=== PATIENT | male | born 1935 | race Hispanic/Latino ===

== ENCOUNTER 2017-12-21 15:42 | Inpatient (IN) | payer OTHER ==
[~2017-12-21] VITALS: Ht 172.7 cm; Wt 49.4 kg
[~2017-12-21 15:42] MED LIST: CARB1TAB23 GT; FINA5TAB2 GT; LEVE500T19 GT; LEVO500T2 PO; PRAM0.5T12 PO
[2017-12-21] MEDS ORDERED: SODIUM CHLORIDE 0.9% 1000ML 1,000 ML IV ONE ×2 (16:12→21:00)
[2017-12-21] MEDS ORDERED: ZOSYN 3.375GM+NS 50ML 50 ML IV ONE (16:12)
[2017-12-21] MEDS ORDERED: ACETAMINOPHEN 325 MG TAB ONE (16:25)
[2017-12-21 16:26] LABS: BASOPHILS % (AUTO) 0.1 % (0.0-5.0); HEMATOCRIT 36.6 % (42-54); LYMPHOCYTES % (AUTO) 4.4 % (21.0-51.0); MEAN CORPUSCULAR HEMOGLOBIN 30.8 pg (27.0-33.0); MEAN CORPUSCULAR HGB CONC 34.2 g/dL (32.0-36.0); MEAN CORPUSCULAR VOLUME 89.9 fL (79-99); MONOCYTES % (AUTO) 4.4 % (3.0-13.0); NEUTROPHILS % (AUTO) 91.1 % (40.0-77.0); PLATELET COUNT (AUTO) 130 K/uL (130-400); RED BLOOD CELL COUNT(AUTO) 4.07 MIL/uL (4.50-6.20); RED CELL DISTRIBUTION WIDTH 15.5 % (11.0-15.5); WHITE BLOOD COUNT (AUTO) 14.7 K/uL (4.8-10.8)
[2017-12-21 16:28] LABS: CREATININE 0.8 mg/dL (0.5-1.5); POTASSIUM 4.1 mmol/L (3.5-5.1)
[2017-12-21 16:32] LABS: INR 1.01 (0.85-1.15); PARTIAL THROMBOPLASTIN TIME 28.4 SEC (26.3-35.5); PROTHROMBIN TIME 10.6 SEC (9.6-11.6)
[2017-12-21 16:43] LABS: ALBUMIN 4.1 g/dL (3.5-5.0); BILIRUBIN,TOTAL 1.1 mg/dL (0.2-1.0); CREATINE KINASE MB 1.4 ng/mL (0.5-3.6); TOTAL PROTEIN, SERUM 7.7 g/dL (6.0-8.3); TROPONIN I 0.07 ng/mL (0.00-0.06)
[2017-12-21 17:45] LABS: APPEARANCE,URINE Clear (CLEAR); BILIRUBIN,URINE Negative (NEGATIVE); COLOR,URINE Yellow (YELLOW); GLUCOSE, URINE (UA) Negative (NEGATIVE); KETONES,URINE Negative (NEGATIVE); LEUKOCYTE ESTERASE ,URINE Small (NEGATIVE); NITRATE,URINE Negative (NEGATIVE); OCCULT BLOOD,URINE Negative (NEGATIVE); PROTEIN,URINE Negative (NEGATIVE)
[2017-12-21 17:50] LABS: RBC,URINE 0-1 /HPF (0-1)
[2017-12-21 17:51] LABS: BACTERIA,URINE Rare /HPF (None Seen); SQUAMOUS EPITHELIAL CELL,UR Rare /HPF (0-2)
[2017-12-21] MEDS ORDERED: VANCOMYCIN 1GM+NS 250ML 250 ML IV ONE (18:55)
[2017-12-21 20:29] VITALS: BP 126/56
[2017-12-21] MEDS ORDERED: LEVOFLOXACIN 500 MG/D5W 100 ML 100 ML IV SCH (21:00)
[2017-12-21] MEDS ORDERED: ACETAMINOPHEN 325 MG TAB PO PRN (21:15)
[2017-12-21] MEDS: LEVETIRACETAM 500 MG TABLET PO SCH (21:19)
[2017-12-21] MEDS: PRAMIPEXOLE DI-HCL 0.25 MG TABLET PO SCH (21:19)
[2017-12-21] MEDS: SODIUM CHLORIDE 0.9% 1000ML 1,000 ML IV SCH (21:20)
[2017-12-22] VITALS: BP 120/57
[2017-12-22] MEDS: ZOSYN 3.375GM+NS 50ML 50 ML IV SCH ×3 (01:58→16:29)
[2017-12-22 04:33] VITALS: BP 128/54
[2017-12-22 04:49] LABS: HEMATOCRIT 34.6 % (42-54); MEAN CORPUSCULAR HGB CONC 35.4 g/dL (32.0-36.0); MEAN CORPUSCULAR VOLUME 90.4 fL (79-99); PLATELET COUNT (AUTO) 121 K/uL (130-400); RED BLOOD CELL COUNT(AUTO) 3.82 MIL/uL (4.50-6.20); RED CELL DISTRIBUTION WIDTH 15.8 % (11.0-15.5); WHITE BLOOD COUNT (AUTO) 14.6 K/uL (4.8-10.8)
[2017-12-22 05:03] LABS: ALBUMIN 3.1 g/dL (3.5-5.0); BILIRUBIN,TOTAL 1.2 mg/dL (0.2-1.0); CREATININE 0.8 mg/dL (0.5-1.5); POTASSIUM 3.7 mmol/L (3.5-5.1); TOTAL PROTEIN, SERUM 6.5 g/dL (6.0-8.3)
[2017-12-22] MEDS: SODIUM CHLORIDE 0.9% 1000ML 1,000 ML IV SCH ×2 (06:51→16:34)
[2017-12-22 08:00] VITALS: BP 98/52
[2017-12-22] MEDS: LEVETIRACETAM 500 MG TABLET PO SCH ×2 (09:05→21:39)
[2017-12-22] MEDS: FAMOTIDINE 20MG TAB 20 MG TAB PO SCH ×2 (09:05→21:39)
[2017-12-22] MEDS: FINASTERIDE 5 MG TABLET PO SCH (09:05)
[2017-12-22] MEDS: PRAMIPEXOLE DI-HCL 0.25 MG TABLET PO SCH ×3 (09:05→21:45)
[2017-12-22] MEDS: ENOXAPARIN SODIUM 30 MG/0.3 ML SQ SCH (09:07)
[2017-12-22 12:00] VITALS: BP 84/44
[2017-12-22] MEDS ORDERED: VANCOMYCIN 1GM+NS 250ML 250 ML IV SCH (14:00)
[2017-12-22 16:00] VITALS: BP 115/57
[2017-12-22 20:36] VITALS: BP 96/51
[2017-12-22] MEDS ORDERED: LEVOFLOXACIN 500 MG/D5W 100 ML 100 ML IV SCH (23:15)
[2017-12-23] VITALS (8 sets, daily range): BP systolic 95–156; BP diastolic 47–77
[2017-12-23] MEDS: ZOSYN 3.375GM+NS 50ML 50 ML IV SCH ×3 (01:54→16:10)
[2017-12-23] MEDS: SODIUM CHLORIDE 0.9% 1000ML 1,000 ML IV SCH ×3 (03:57→23:44)
[2017-12-23 04:09] LABS: HEMATOCRIT 29.1 % (42-54); MEAN CORPUSCULAR HEMOGLOBIN 32.5 pg (27.0-33.0); MEAN CORPUSCULAR HGB CONC 36.1 g/dL (32.0-36.0); MEAN CORPUSCULAR VOLUME 90.2 fL (79-99); PLATELET COUNT (AUTO) 122 K/uL (130-400); RED BLOOD CELL COUNT(AUTO) 3.23 MIL/uL (4.50-6.20); RED CELL DISTRIBUTION WIDTH 16.1 % (11.0-15.5)
[2017-12-23 04:17] LABS: BASOPHILS % (MANUAL) 2 % (0-2); LYMPHOCYTES % (MANUAL) 13 % (22-44); MAN.DIFF COMMENT-IMPRESSION MANUAL DIFFERENTIAL; MONOCYTES % (MANUAL) 3 % (2-9); PLATELET MORPHOLOGY COMMENT SLIGHTLY DECREASED; SEGMENTED NEUTROPHILS % 82 % (40-70)
[2017-12-23] MEDS: FINASTERIDE 5 MG TABLET PO SCH (08:03)
[2017-12-23] MEDS: PRAMIPEXOLE DI-HCL 0.25 MG TABLET PO SCH ×3 (08:03→21:00)
[2017-12-23] MEDS: LEVETIRACETAM 500 MG TABLET PO SCH ×2 (08:03→21:00)
[2017-12-23] MEDS: FAMOTIDINE 20MG TAB 20 MG TAB PO SCH ×2 (08:03→21:00)
[2017-12-23] MEDS: ENOXAPARIN SODIUM 30 MG/0.3 ML SQ SCH (08:06)
[2017-12-23] MEDS: MECLIZINE HCL 25 MG TABLET PO PRN ×2 (10:00→16:10)
[2017-12-23] MEDS ORDERED: ONDANSETRON HCL 4 MG/2 ML VIAL IVP PRN (12:00)
[2017-12-23] MEDS: LACTULOSE 20 GM/30 ML UDCUP PO PRN (16:10)
[2017-12-23] MEDS ORDERED: HALOPERIDOL 5 MG TABLET PO PRN (17:15)
[2017-12-23] MEDS ORDERED: HALOPERIDOL LACTATE 5 MG/ML VIAL IM PRN (17:15)
[2017-12-24] MEDS: ZOSYN 3.375GM+NS 50ML 50 ML IV SCH ×4 (01:17→23:29)
[2017-12-24 03:58] VITALS: BP 127/62
[2017-12-24 04:53] LABS: HEMATOCRIT 34.9 % (42-54); MEAN CORPUSCULAR HGB CONC 34.7 g/dL (32.0-36.0); MEAN CORPUSCULAR VOLUME 89.3 fL (79-99); PLATELET COUNT (AUTO) 135 K/uL (130-400); RED BLOOD CELL COUNT(AUTO) 3.91 MIL/uL (4.50-6.20); RED CELL DISTRIBUTION WIDTH 15.5 % (11.0-15.5)
[2017-12-24 05:01] LABS: EOSINOPHILS % (MANUAL) 1 % (1-6); LYMPHOCYTES % (MANUAL) 6 % (22-44); MONOCYTES % (MANUAL) 5 % (2-9); SEGMENTED NEUTROPHILS % 88 % (40-70)
[2017-12-24 05:02] LABS: MAN.DIFF COMMENT-IMPRESSION MANUAL DIFFERENTIAL; PLATELET MORPHOLOGY COMMENT ADEQUATE
[2017-12-24 07:00] VITALS: BP 136/65
[2017-12-24] MEDS: PRAMIPEXOLE DI-HCL 0.25 MG TABLET PO SCH ×3 (09:00→21:00)
[2017-12-24] MEDS: FAMOTIDINE 20MG TAB 20 MG TAB PO SCH ×2 (09:00→21:00)
[2017-12-24] MEDS: FINASTERIDE 5 MG TABLET PO SCH (09:00)
[2017-12-24] MEDS: LEVETIRACETAM 500 MG TABLET PO SCH ×2 (09:00→21:00)
[2017-12-24] MEDS: ENOXAPARIN SODIUM 30 MG/0.3 ML SQ SCH (10:53)
[2017-12-24 11:00] VITALS: BP 132/61
[2017-12-24] MEDS: SODIUM CHLORIDE 0.9% 1000ML 1,000 ML IV SCH (13:26)
[2017-12-24 16:00] VITALS: BP 122/49
[2017-12-24 19:30] VITALS: BP 143/72
[2017-12-24 23:51] VITALS: BP 155/61
[2017-12-25] VITALS (20 sets, daily range): BP systolic 109–154; BP diastolic 51–77
[2017-12-25] MEDS: SODIUM CHLORIDE 0.9% 1000ML 1,000 ML IV SCH (06:59)
[2017-12-25] MEDS: FAMOTIDINE 20MG TAB 20 MG TAB PO SCH ×2 (09:00→22:28)
[2017-12-25] MEDS: PRAMIPEXOLE DI-HCL 0.25 MG TABLET PO SCH ×3 (09:00→22:28)
[2017-12-25] MEDS: LEVETIRACETAM 500 MG TABLET PO SCH ×2 (09:00→22:28)
[2017-12-25] MEDS: FINASTERIDE 5 MG TABLET PO SCH (09:00)
[2017-12-25] MEDS: ZOSYN 3.375GM+NS 50ML 50 ML IV SCH ×3 (10:03→23:34)
[2017-12-25] MEDS ORDERED: DEXTROSE 5 %-0.45 % NACL 1,000 ML IV SCH (11:30)
[2017-12-25] MEDS ORDERED: PROPOFOL 10 MG/ML 20ML VIAL IV ONE ×2 (14:34)
[2017-12-25] MEDS ORDERED: LIDOCAINE HCL 2% 20ML ONE (14:35)
[2017-12-25] MEDS ORDERED: PHENYLEPHRINE HCL 10 MG/ML 1ML VIAL IV ONE (14:42)
[2017-12-26 04:00] VITALS: BP 135/68
[2017-12-26 05:17] LABS: HEMATOCRIT 36.4 % (42-54); MEAN CORPUSCULAR HEMOGLOBIN 31.2 pg (27.0-33.0); MEAN CORPUSCULAR HGB CONC 34.9 g/dL (32.0-36.0); MEAN CORPUSCULAR VOLUME 89.5 fL (79-99); PLATELET COUNT (AUTO) 170 K/uL (130-400); RED BLOOD CELL COUNT(AUTO) 4.07 MIL/uL (4.50-6.20); RED CELL DISTRIBUTION WIDTH 15.1 % (11.0-15.5); WHITE BLOOD COUNT (AUTO) 10.8 K/uL (4.8-10.8)
[2017-12-26 05:27] LABS: CREATININE 0.6 mg/dL (0.5-1.5); POTASSIUM 3.5 mmol/L (3.5-5.1)
[2017-12-26 05:44] LABS: BAND NEUTROPHILS % (MANUAL) 1 % (0-2); EOSINOPHILS % (MANUAL) 2 % (1-6); LYMPHOCYTES % (MANUAL) 17 % (22-44); MAN.DIFF COMMENT-IMPRESSION MANUAL DIFFERENTIAL; MONOCYTES % (MANUAL) 7 % (2-9); PLATELET MORPHOLOGY COMMENT ADEQUATE; SEGMENTED NEUTROPHILS % 73 % (40-70)
[2017-12-26 08:13] VITALS: BP 135/68
[2017-12-26] MEDS: PANTOPRAZOLE SODIUM 40 MG TABLET.DR PO SCH (09:00)
[2017-12-26] MEDS: FINASTERIDE 5 MG TABLET PO SCH (09:00)
[2017-12-26] MEDS: LEVETIRACETAM 100 MG/ML 5 ML UDCUP PO SCH ×2 (09:58→22:15)
[2017-12-26] MEDS: PRAMIPEXOLE DI-HCL 0.25 MG TABLET PO SCH ×3 (09:59→22:15)
[2017-12-26] MEDS: FAMOTIDINE 20MG TAB 20 MG TAB PO SCH ×2 (09:59→22:15)
[2017-12-26] MEDS: ZOSYN 3.375GM+NS 50ML 50 ML IV SCH ×3 (10:03→23:44)
[2017-12-26 12:15] VITALS: BP 136/62
[2017-12-26 16:40] VITALS: BP 150/72
[2017-12-26 19:24] VITALS: BP 157/76
[2017-12-26 23:28] VITALS: BP 112/60
[2017-12-27 03:41] VITALS: BP 141/67
[2017-12-27 08:00] VITALS: BP 133/74
[2017-12-27] MEDS: PANTOPRAZOLE SODIUM 40 MG TABLET.DR PO SCH (08:07)
[2017-12-27] MEDS: FINASTERIDE 5 MG TABLET PO SCH (08:07)
[2017-12-27] MEDS: LEVETIRACETAM 100 MG/ML 5 ML UDCUP PO SCH ×2 (10:00→20:05)
[2017-12-27] MEDS: ZOSYN 3.375GM+NS 50ML 50 ML IV SCH ×3 (10:01→23:58)
[2017-12-27] MEDS: PRAMIPEXOLE DI-HCL 0.25 MG TABLET PO SCH ×3 (10:01→20:13)
[2017-12-27] MEDS: FAMOTIDINE 20MG TAB 20 MG TAB PO SCH ×2 (10:01→20:05)
[2017-12-27 12:00] VITALS: BP 114/54
[2017-12-27] MEDS: LACTULOSE 20 GM/30 ML UDCUP PO PRN (15:24)
[2017-12-27 16:00] VITALS: BP 117/53
[2017-12-27] MEDS ORDERED: FUROSEMIDE 10 MG/ML 2ML VIAL IV SCH (19:00)
[2017-12-27 20:33] VITALS: BP 116/58
[2017-12-27 23:39] VITALS: BP 103/51
[2017-12-28 04:35] VITALS: BP 85/52
[2017-12-28] MEDS ORDERED: SODIUM CHLORIDE 0.9% 500ML 500 ML IV SCH ×2 (04:45→05:45)
[2017-12-28 06:12] VITALS: BP 107/43
[2017-12-28 06:59] LABS: ALBUMIN 2.4 g/dL (3.5-5.0); BILIRUBIN,TOTAL 0.4 mg/dL (0.2-1.0); CREATININE 0.6 mg/dL (0.5-1.5); POTASSIUM 3.1 mmol/L (3.5-5.1)
[2017-12-28 08:00] VITALS: BP 90/36
[2017-12-28] MEDS: ZOSYN 3.375GM+NS 50ML 50 ML IV SCH ×2 (10:07→16:29)
[2017-12-28] MEDS: FINASTERIDE 5 MG TABLET PO SCH (10:08)
[2017-12-28] MEDS: PANTOPRAZOLE SODIUM 40 MG TABLET.DR PO SCH (10:08)
[2017-12-28] MEDS: PRAMIPEXOLE DI-HCL 0.25 MG TABLET PO SCH ×3 (10:08→20:09)
[2017-12-28] MEDS: LEVETIRACETAM 100 MG/ML 5 ML UDCUP PO SCH ×2 (10:08→20:09)
[2017-12-28] MEDS: FAMOTIDINE 20MG TAB 20 MG TAB PO SCH ×2 (10:08→20:09)
[2017-12-28 11:00] VITALS: BP 96/62
[2017-12-28 15:42] VITALS: BP 97/44
[2017-12-28] MEDS ORDERED: POTASSIUM CHLORIDE 10% ELIXIR 20 MEQ/15 ML UDCUP PO PRN (16:00)
[2017-12-28] MEDS ORDERED: POTASSIUM CHLORIDE 20 MEQ ERTAB PO PRN (16:00)
[2017-12-28] MEDS ORDERED: LIDOCAINE HCL-MPF 1% 2ML VIAL IVP PRN (16:00)
[2017-12-28] MEDS ORDERED: POTASSIUM CHLORIDE 20MEQ/100ML 100 ML IV PRN (16:00)
[2017-12-28 20:22] VITALS: BP 146/60
[2017-12-29 00:22] VITALS: BP 108/49
[2017-12-29] MEDS: ZOSYN 3.375GM+NS 50ML 50 ML IV SCH ×3 (00:39→16:00)
[2017-12-29 03:48] VITALS: BP 127/53
[2017-12-29 07:00] VITALS: BP 123/43
[2017-12-29] MEDS: PRAMIPEXOLE DI-HCL 0.25 MG TABLET PO SCH ×2 (08:39→14:00)
[2017-12-29] MEDS: FAMOTIDINE 20MG TAB 20 MG TAB PO SCH (08:39)
[2017-12-29] MEDS: FINASTERIDE 5 MG TABLET PO SCH (08:39)
[2017-12-29] MEDS: PANTOPRAZOLE SODIUM 40 MG TABLET.DR PO SCH (08:39)
[2017-12-29] MEDS: LEVETIRACETAM 100 MG/ML 5 ML UDCUP PO SCH (08:40)
[2017-12-29 11:15] VITALS: BP 138/67
[2017-12-29 15:35] VITALS: BP 116/53
[2017-12-30] MEDS ORDERED: LEVOFLOXACIN 750 MG/D5W 150 ML 150 ML ONE (23:30)
== END 2017-12-29 19:40 | DRG 177 ==
LOC: EDH 15:42 → OBSVTOIN 18:50 → EDHIP 18:50 → 3AH 19:39
PROVIDERS: ADMIT Family Medicine; ATTEND Family Medicine
PROC: 0DJ08ZZ Inspection of Upper Intestinal Tract, Via Natural or Artificial Opening Endoscopic (ICD-10-PCS; principal; 2017-12-25)
DX: J69.0 Pneumonitis due to inhalation of food and vomit (principal); E43 Unspecified severe protein-calorie malnutrition; G93.41 Metabolic encephalopathy; D68.9 Coagulation defect, unspecified; D69.6 Thrombocytopenia, unspecified; G20 Parkinson's disease; Z93.1 Gastrostomy status; K26.9 Duodenal ulcer, unspecified as acute or chronic, without hemorrhage or perforation; Z68.1 Body mass index [BMI] 19.9 or less, adult; R13.12 Dysphagia, oropharyngeal phase; D64.9 Anemia, unspecified; D73.1 Hypersplenism; G25.81 Restless legs syndrome; G40.909 Epilepsy, unspecified, not intractable, without status epilepticus; D72.829 Elevated white blood cell count, unspecified; K59.00 Constipation, unspecified; Z74.01 Bed confinement status; Z83.3 Family history of diabetes mellitus; Z82.49 Family history of ischemic heart disease and other diseases of the circulatory system; K29.00 Acute gastritis without bleeding; K57.10 Diverticulosis of small intestine without perforation or abscess without bleeding; K21.0 Gastro-esophageal reflux disease with esophagitis; K44.9 Diaphragmatic hernia without obstruction or gangrene
CPT/HCPCS: 36415; 71045; 74230; 80048; 80053; 81001; 82550; 82553; 82948; 83605; 83874; 84132; 84484; 85025; 85027; 85610; 85730; 86677; 87040; 87088; 87633; 87641; 87804; 92610; 92611; 93005; 97039; A4344; J1630; J1650; J1940; J1956; J2370; J2405; J2543; J2704; J3370; J3490; J7030; J7042

== ENCOUNTER 2017-12-30 17:55 | Inpatient (IN) | payer OTHER ==
[~2017-12-30] VITALS: Ht 172.7 cm; Wt 44.5 kg
[~2017-12-30 17:55] MED LIST changes: -LEVO500T2 PO
[2017-12-30 18:17] LABS: ABG BASE EXCESS 8.5 mmol/L (-2.0-3.0); ABG HCO3 33.8 mmol/L (21.0-28.0); ABG PCO2 49 mmHg (35-48)
[2017-12-30 18:32] LABS: BASOPHILS % (AUTO) 0.4 % (0.0-5.0); EOSINOPHILS % (AUTO) 0.4 % (0.0-8.0); HEMATOCRIT 32.4 % (42-54); LYMPHOCYTES % (AUTO) 4.7 % (21.0-51.0); MEAN CORPUSCULAR HEMOGLOBIN 31.6 pg (27.0-33.0); MEAN CORPUSCULAR HGB CONC 34.7 g/dL (32.0-36.0); MONOCYTES % (AUTO) 5.4 % (3.0-13.0); NEUTROPHILS % (AUTO) 89.1 % (40.0-77.0); PLATELET COUNT (AUTO) 287 K/uL (130-400); RED BLOOD CELL COUNT(AUTO) 3.56 MIL/uL (4.50-6.20); RED CELL DISTRIBUTION WIDTH 15.1 % (11.0-15.5); WHITE BLOOD COUNT (AUTO) 16.7 K/uL (4.8-10.8)
[2017-12-30 18:46] LABS: INR 1.05 (0.85-1.15); PARTIAL THROMBOPLASTIN TIME 29.5 SEC (26.3-35.5)
[2017-12-30 18:53] LABS: ALBUMIN 2.6 g/dL (3.5-5.0); CREATININE 0.8 mg/dL (0.5-1.5); POTASSIUM 4.3 mmol/L (3.5-5.1)
[2017-12-30 19:11] LABS: BILIRUBIN,TOTAL 0.4 mg/dL (0.2-1.0); TOTAL PROTEIN, SERUM 6.8 g/dL (6.0-8.3)
[2017-12-30] MEDS: SODIUM CHLORIDE 0.9% 1000ML 1,000 ML IV SCH (20:30)
[2017-12-30] MEDS ORDERED: COMPOUND IV REFRIGERATED 1 EACH IVSOLN MISC PRN (21:00)
[2017-12-30] MEDS ORDERED: VANCOMYCIN PROTOCOL PER PHARMACY IV SCH (21:00)
[2017-12-30] MEDS: LEVOFLOXACIN 750 MG/D5W 150 ML 150 ML IV SCH (21:00)
[2017-12-30] MEDS: IPRATROPIUM/ALBUTEROL SULFATE 3 ML SOLUTION IH SCH (22:14)
[2017-12-30] MEDS ORDERED: VANCOMYCIN 1.25 GM in SODIUM CHLORIDE 0.9% 250 ML IV ONE (23:00)
[2017-12-31] VITALS (7 sets, daily range): BP systolic 100–157; BP diastolic 44–74
[2017-12-31] MEDS: IPRATROPIUM/ALBUTEROL SULFATE 3 ML SOLUTION IH SCH ×6 (01:28→22:35)
[2017-12-31] MEDS ORDERED: FAMO-136 GT (04:21)
[2017-12-31] MEDS ORDERED: PRAM0.5T12 GT (04:21)
[2017-12-31] MEDS ORDERED: PROTEIN FORTIFIER GT (04:21)
[2017-12-31] MEDS ORDERED: ACET325T51 GT (04:21)
[2017-12-31] MEDS ORDERED: LACT10SO9 PO (04:21)
[2017-12-31 04:58] LABS: HEMATOCRIT 32.8 % (42-54); MEAN CORPUSCULAR HEMOGLOBIN 31.2 pg (27.0-33.0); MEAN CORPUSCULAR HGB CONC 34.5 g/dL (32.0-36.0); MEAN CORPUSCULAR VOLUME 90.4 fL (79-99); PLATELET COUNT (AUTO) 289 K/uL (130-400); RED BLOOD CELL COUNT(AUTO) 3.63 MIL/uL (4.50-6.20); RED CELL DISTRIBUTION WIDTH 15.3 % (11.0-15.5); WHITE BLOOD COUNT (AUTO) 16.4 K/uL (4.8-10.8)
[2017-12-31 05:07] LABS: CREATININE 0.7 mg/dL (0.5-1.5)
[2017-12-31] MEDS: ZOSYN 3.375GM+NS 50ML 50 ML IV SCH ×3 (05:15→21:04)
[2017-12-31 07:07] LABS: APPEARANCE,URINE CLOUDY (CLEAR); BILIRUBIN,URINE NEGATIVE (NEGATIVE); COLOR,URINE YELLOW (YELLOW); GLUCOSE, URINE (UA) NEGATIVE (NEGATIVE); KETONES,URINE NEGATIVE (NEGATIVE); LEUKOCYTE ESTERASE ,URINE NEGATIVE (NEGATIVE); NITRATE,URINE NEGATIVE (NEGATIVE); OCCULT BLOOD,URINE NEGATIVE (NEGATIVE); PH,URINE 8.5 (5.0-8.0); PROTEIN,URINE NEGATIVE (NEGATIVE)
[2017-12-31 07:30] LABS: AMORPHOUS SEDIMENT,UR Moderate /LPF (None Seen); BACTERIA,URINE Rare /HPF (None Seen); RBC,URINE 0-1 /HPF (0-1); SQUAMOUS EPITHELIAL CELL,UR Rare /HPF (0-2); WBC,URINE 0-1 /HPF (0-1)
[2017-12-31] MEDS: ENOXAPARIN SODIUM 30 MG/0.3 ML SQ SCH ×2 (09:00→21:00)
[2017-12-31] MEDS: FAMOTIDINE/PF 20 MG/2 ML VIAL IV SCH (10:02)
[2017-12-31] MEDS: SODIUM CHLORIDE 0.9% 1000ML 1,000 ML IV SCH (10:07)
[2017-12-31] MEDS ORDERED: VANCOMYCIN 1GM+NS 250ML 250 ML IV SCH (11:00)
[2017-12-31] MEDS ORDERED: LACTULOSE 20 GM/30 ML UDCUP PO PRN (15:30)
[2017-12-31] MEDS ORDERED: ACETAMINOPHEN 325 MG TAB GT PRN (15:30)
[2017-12-31] MEDS: CARBIDOPA PO SCH ×2 (17:45→21:09)
[2017-12-31] MEDS: LEVODOPA PO SCH ×2 (17:45→21:09)
[2017-12-31] MEDS: PRAMIPEXOLE DI-HCL 0.25 MG TABLET PO SCH (21:00)
[2017-12-31] MEDS: PROTEIN FORTIFIER PO SCH (21:00)
[2017-12-31] MEDS: LEVETIRACETAM 500 MG TABLET PO SCH (21:06)
[2017-12-31] MEDS: PRAMIPEXOLE DI-HCL 0.25 MG TABLET GT SCH (21:06)
[2017-12-31] MEDS: LEVOFLOXACIN 750 MG/D5W 150 ML 150 ML IV SCH (21:17)
[2018-01-01] MEDS: IPRATROPIUM/ALBUTEROL SULFATE 3 ML SOLUTION IH SCH ×6 (02:00→22:50)
[2018-01-01 03:00] VITALS: BP 146/66
[2018-01-01] MEDS: ZOSYN 3.375GM+NS 50ML 50 ML IV SCH ×3 (04:40→19:40)
[2018-01-01] MEDS: SODIUM CHLORIDE 0.9% 1000ML 1,000 ML IV SCH ×3 (04:40→23:06)
[2018-01-01 06:09] LABS: HEMATOCRIT 31.4 % (42-54); MEAN CORPUSCULAR HEMOGLOBIN 31.4 pg (27.0-33.0); MEAN CORPUSCULAR HGB CONC 34.7 g/dL (32.0-36.0); MEAN CORPUSCULAR VOLUME 90.4 fL (79-99); PLATELET COUNT (AUTO) 292 K/uL (130-400); RED BLOOD CELL COUNT(AUTO) 3.47 MIL/uL (4.50-6.20); RED CELL DISTRIBUTION WIDTH 15.2 % (11.0-15.5); WHITE BLOOD COUNT (AUTO) 13.9 K/uL (4.8-10.8)
[2018-01-01 06:26] LABS: CREATININE 0.7 mg/dL (0.5-1.5); MAGNESIUM 2.1 mg/dL (1.80-2.40); PHOSPHORUS 3.1 mg/dL (2.5-4.9); POTASSIUM 3.9 mmol/L (3.5-5.1)
[2018-01-01 08:00] VITALS: BP 136/56
[2018-01-01] MEDS: PROTEIN FORTIFIER PO SCH ×2 (09:00→21:00)
[2018-01-01] MEDS: PRAMIPEXOLE DI-HCL 0.25 MG TABLET PO SCH ×3 (09:00→20:40)
[2018-01-01] MEDS: LEVODOPA PO SCH ×4 (09:00→20:33)
[2018-01-01] MEDS: ENOXAPARIN SODIUM 30 MG/0.3 ML SQ SCH ×2 (09:00→20:40)
[2018-01-01] MEDS: CARBIDOPA PO SCH ×4 (09:00→20:33)
[2018-01-01] MEDS: PRAMIPEXOLE DI-HCL 0.25 MG TABLET GT SCH ×3 (10:03→20:33)
[2018-01-01] MEDS: FINASTERIDE 5 MG TABLET GT SCH (10:03)
[2018-01-01] MEDS: LEVETIRACETAM 500 MG TABLET PO SCH ×2 (10:03→21:39)
[2018-01-01] MEDS: FAMOTIDINE/PF 20 MG/2 ML VIAL IV SCH (10:03)
[2018-01-01 11:00] VITALS: BP 127/53
[2018-01-01 16:00] VITALS: BP 130/61
[2018-01-01] MEDS ORDERED: MORPHINE SULFATE 2 MG/ML 1ML SYG IVP PRN (18:00)
[2018-01-01 19:00] VITALS: BP 109/52
[2018-01-01] MEDS: LEVOFLOXACIN 750 MG/D5W 150 ML 150 ML IV SCH (20:32)
[2018-01-01 23:00] VITALS: BP 112/45
[2018-01-02] MEDS: IPRATROPIUM/ALBUTEROL SULFATE 3 ML SOLUTION IH SCH ×6 (01:43→21:36)
[2018-01-02 03:00] VITALS: BP 124/59
[2018-01-02] MEDS: ZOSYN 3.375GM+NS 50ML 50 ML IV SCH ×3 (03:43→20:13)
[2018-01-02 08:00] VITALS: BP 116/64
[2018-01-02] MEDS: PRAMIPEXOLE DI-HCL 0.25 MG TABLET PO SCH ×3 (09:00→21:00)
[2018-01-02] MEDS: PROTEIN FORTIFIER PO SCH ×2 (09:00→21:00)
[2018-01-02] MEDS: CARBIDOPA PO SCH ×4 (09:00→20:15)
[2018-01-02] MEDS: FINASTERIDE 5 MG TABLET GT SCH (09:00)
[2018-01-02] MEDS: LEVODOPA PO SCH ×4 (09:00→20:15)
[2018-01-02] MEDS: ENOXAPARIN SODIUM 30 MG/0.3 ML SQ SCH ×2 (09:00→21:00)
[2018-01-02] MEDS: LEVETIRACETAM 500 MG TABLET PO SCH ×2 (09:28→20:13)
[2018-01-02] MEDS: FAMOTIDINE/PF 20 MG/2 ML VIAL IV SCH (09:28)
[2018-01-02] MEDS: PRAMIPEXOLE DI-HCL 0.25 MG TABLET GT SCH ×3 (09:29→20:13)
[2018-01-02 11:00] VITALS: BP 140/64
[2018-01-02 16:00] VITALS: BP 103/54
[2018-01-02] MEDS ORDERED: SODIUM CHLORIDE 0.9% 250 ML IV ONE (18:03)
[2018-01-02 19:25] VITALS: BP 115/62
[2018-01-02] MEDS: LEVOFLOXACIN 750 MG/D5W 150 ML 150 ML IV SCH (21:34)
[2018-01-03 00:22] VITALS: BP 103/55
[2018-01-03] MEDS: IPRATROPIUM/ALBUTEROL SULFATE 3 ML SOLUTION IH SCH ×6 (01:17→22:01)
[2018-01-03] MEDS: ZOSYN 3.375GM+NS 50ML 50 ML IV SCH ×3 (03:41→19:57)
[2018-01-03 04:12] VITALS: BP 108/58
[2018-01-03 08:00] VITALS: BP 110/52
[2018-01-03] MEDS: PROTEIN FORTIFIER PO SCH ×2 (09:00→19:59)
[2018-01-03] MEDS: ENOXAPARIN SODIUM 30 MG/0.3 ML SQ SCH ×2 (09:00→19:59)
[2018-01-03] MEDS: PRAMIPEXOLE DI-HCL 0.25 MG TABLET PO SCH ×3 (09:00→19:59)
[2018-01-03] MEDS: CARBIDOPA PO SCH ×4 (09:40→19:57)
[2018-01-03] MEDS: LEVODOPA PO SCH ×4 (09:40→19:57)
[2018-01-03] MEDS: PRAMIPEXOLE DI-HCL 0.25 MG TABLET GT SCH ×3 (09:41→19:57)
[2018-01-03] MEDS: FINASTERIDE 5 MG TABLET GT SCH (09:41)
[2018-01-03] MEDS: FAMOTIDINE/PF 20 MG/2 ML VIAL IV SCH (09:43)
[2018-01-03] MEDS: LEVETIRACETAM 500 MG TABLET PO SCH ×2 (10:44→21:03)
[2018-01-03 11:00] VITALS: BP 95/52
[2018-01-03 16:00] VITALS: BP 124/51
[2018-01-03] MEDS: LEVOFLOXACIN 750 MG/D5W 150 ML 150 ML IV SCH (19:57)
[2018-01-03 20:00] VITALS: BP 97/44
[2018-01-04] VITALS (7 sets, daily range): BP systolic 93–120; BP diastolic 44–56
[2018-01-04] MEDS: IPRATROPIUM/ALBUTEROL SULFATE 3 ML SOLUTION IH SCH ×6 (01:33→22:39)
[2018-01-04] MEDS: ZOSYN 3.375GM+NS 50ML 50 ML IV SCH ×3 (03:44→20:58)
[2018-01-04] MEDS: PROTEIN FORTIFIER PO SCH ×2 (09:00→21:00)
[2018-01-04] MEDS: PRAMIPEXOLE DI-HCL 0.25 MG TABLET PO SCH ×3 (09:00→21:00)
[2018-01-04] MEDS: LEVODOPA PO SCH ×4 (09:00→23:01)
[2018-01-04] MEDS: LEVETIRACETAM 500 MG TABLET PO SCH ×2 (09:00→21:02)
[2018-01-04] MEDS: CARBIDOPA PO SCH ×4 (09:00→23:01)
[2018-01-04] MEDS: PRAMIPEXOLE DI-HCL 0.25 MG TABLET GT SCH ×3 (11:18→21:02)
[2018-01-04] MEDS: FINASTERIDE 5 MG TABLET GT SCH (11:18)
[2018-01-04] MEDS: ENOXAPARIN SODIUM 30 MG/0.3 ML SQ SCH ×2 (11:19→21:02)
[2018-01-04] MEDS: FAMOTIDINE/PF 20 MG/2 ML VIAL IV SCH (11:19)
[2018-01-04 13:08] LABS: BASOPHILS % (AUTO) 0.4 % (0.0-5.0); EOSINOPHILS % (AUTO) 1.1 % (0.0-8.0); HEMATOCRIT 31.5 % (42-54); LYMPHOCYTES % (AUTO) 6.1 % (21.0-51.0); MEAN CORPUSCULAR HGB CONC 34.6 g/dL (32.0-36.0); MEAN CORPUSCULAR VOLUME 89.4 fL (79-99); NEUTROPHILS % (AUTO) 83.4 % (40.0-77.0); PLATELET COUNT (AUTO) 375 K/uL (130-400); RED BLOOD CELL COUNT(AUTO) 3.53 MIL/uL (4.50-6.20); RED CELL DISTRIBUTION WIDTH 15.1 % (11.0-15.5); WHITE BLOOD COUNT (AUTO) 11.9 K/uL (4.8-10.8)
[2018-01-04 13:16] LABS: CREATININE 0.8 mg/dL (0.5-1.5); POTASSIUM 4.5 mmol/L (3.5-5.1)
[2018-01-04] MEDS ORDERED: LEVETIRACETAM 100 MG/ML 5 ML UDCUP ONE (21:41)
[2018-01-04] MEDS: DOXYCYCLINE 100MG+NS 250ML 250 ML IV SCH (23:23)
[2018-01-05] MEDS: IPRATROPIUM/ALBUTEROL SULFATE 3 ML SOLUTION IH SCH ×6 (02:32→21:59)
[2018-01-05 03:00] VITALS: BP 99/54
[2018-01-05] MEDS: ZOSYN 3.375GM+NS 50ML 50 ML IV SCH ×3 (04:32→22:21)
[2018-01-05 04:42] LABS: HEMATOCRIT 31.7 % (42-54); MEAN CORPUSCULAR HEMOGLOBIN 31.6 pg (27.0-33.0); MEAN CORPUSCULAR HGB CONC 35.2 g/dL (32.0-36.0); PLATELET COUNT (AUTO) 352 K/uL (130-400); RED BLOOD CELL COUNT(AUTO) 3.52 MIL/uL (4.50-6.20); RED CELL DISTRIBUTION WIDTH 14.7 % (11.0-15.5); WHITE BLOOD COUNT (AUTO) 11.4 K/uL (4.8-10.8)
[2018-01-05 04:51] LABS: CREATININE 0.7 mg/dL (0.5-1.5); MAGNESIUM 2.2 mg/dL (1.80-2.40); PHOSPHORUS 3.6 mg/dL (2.5-4.9)
[2018-01-05] MEDS: DOXYCYCLINE 100MG+NS 250ML 250 ML IV SCH ×2 (06:37→18:38)
[2018-01-05] MEDS: SODIUM CHLORIDE 0.9% 1000ML 1,000 ML IV SCH (06:43)
[2018-01-05 07:52] VITALS: BP 98/46
[2018-01-05] MEDS: PRAMIPEXOLE DI-HCL 0.25 MG TABLET PO SCH ×2 (09:00→12:44)
[2018-01-05] MEDS: PROTEIN FORTIFIER PO SCH ×2 (09:00→19:59)
[2018-01-05] MEDS: LEVODOPA PO SCH ×4 (11:05→22:24)
[2018-01-05] MEDS: CARBIDOPA PO SCH ×4 (11:05→22:24)
[2018-01-05] MEDS: PRAMIPEXOLE DI-HCL 0.25 MG TABLET GT SCH ×3 (11:05→22:23)
[2018-01-05] MEDS: FAMOTIDINE/PF 20 MG/2 ML VIAL IV SCH (11:06)
[2018-01-05] MEDS: FINASTERIDE 5 MG TABLET GT SCH (11:06)
[2018-01-05] MEDS: LEVETIRACETAM 500 MG TABLET PO SCH (11:06)
[2018-01-05] MEDS: ENOXAPARIN SODIUM 30 MG/0.3 ML SQ SCH ×2 (11:07→22:21)
[2018-01-05 11:31] VITALS: BP 114/60
[2018-01-05 16:21] VITALS: BP 102/43
[2018-01-05 19:00] VITALS: BP 94/46
[2018-01-05 23:00] VITALS: BP 114/39
[2018-01-05] MEDS: LEVETIRACETAM 100 MG/ML 5 ML UDCUP PO SCH (23:46)
[2018-01-06] MEDS: SODIUM CHLORIDE 0.9% 1000ML 1,000 ML IV SCH ×2 (01:34→11:15)
[2018-01-06] MEDS: IPRATROPIUM/ALBUTEROL SULFATE 3 ML SOLUTION IH SCH ×6 (01:47→22:31)
[2018-01-06 03:00] VITALS: BP 141/48
[2018-01-06 04:51] LABS: HEMATOCRIT 31.6 % (42-54); MEAN CORPUSCULAR HEMOGLOBIN 31.1 pg (27.0-33.0); MEAN CORPUSCULAR VOLUME 88.9 fL (79-99); PLATELET COUNT (AUTO) 353 K/uL (130-400); RED BLOOD CELL COUNT(AUTO) 3.55 MIL/uL (4.50-6.20); RED CELL DISTRIBUTION WIDTH 14.9 % (11.0-15.5); WHITE BLOOD COUNT (AUTO) 12.4 K/uL (4.8-10.8)
[2018-01-06 05:21] LABS: CREATININE 0.5 mg/dL (0.5-1.5); MAGNESIUM 2.1 mg/dL (1.80-2.40); PHOSPHORUS 3.1 mg/dL (2.5-4.9); POTASSIUM 4.1 mmol/L (3.5-5.1)
[2018-01-06] MEDS: ZOSYN 3.375GM+NS 50ML 50 ML IV SCH ×3 (05:44→20:00)
[2018-01-06] MEDS: DOXYCYCLINE 100MG+NS 250ML 250 ML IV SCH (06:44)
[2018-01-06 08:00] VITALS: BP 98/49
[2018-01-06] MEDS: PROTEIN FORTIFIER PO SCH ×2 (09:00→21:00)
[2018-01-06] MEDS: PRAMIPEXOLE DI-HCL 0.25 MG TABLET GT SCH ×3 (09:57→21:00)
[2018-01-06] MEDS: LEVETIRACETAM 100 MG/ML 5 ML UDCUP PO SCH ×2 (09:57→21:00)
[2018-01-06] MEDS: FAMOTIDINE/PF 20 MG/2 ML VIAL IV SCH (09:57)
[2018-01-06] MEDS: LEVODOPA PO SCH ×4 (09:59→21:00)
[2018-01-06] MEDS: CARBIDOPA PO SCH ×4 (09:59→21:00)
[2018-01-06] MEDS: FINASTERIDE 5 MG TABLET GT SCH (10:04)
[2018-01-06] MEDS: ENOXAPARIN SODIUM 30 MG/0.3 ML SQ SCH (10:04)
[2018-01-06 11:00] VITALS: BP 101/61
[2018-01-06 14:57] LABS: INR 1.02 (0.85-1.15); PROTHROMBIN TIME 10.7 SEC (9.6-11.6)
[2018-01-06 16:00] VITALS: BP 116/57
[2018-01-06 19:15] VITALS: BP 140/71
[2018-01-06] MEDS ORDERED: LEVOFLOXACIN 750 MG/D5W 150 ML 150 ML IV SCH (20:30)
== END 2018-01-06 23:10 | disposition hospice, inpatient (51) | DRG 871 ==
LOC: EDH 17:55 → OBSVTOIN 19:51 → EDHIP 19:51 → 3CH 22:09
PROVIDERS: ADMIT Family Medicine; ATTEND Family Medicine
PROC: 02HV33Z Insertion of Infusion Device into Superior Vena Cava, Percutaneous Approach (ICD-10-PCS; principal; 2018-01-06)
DX: A41.9 Sepsis, unspecified organism (principal); J69.0 Pneumonitis due to inhalation of food and vomit; J96.01 Acute respiratory failure with hypoxia; E44.0 Moderate protein-calorie malnutrition; Z68.1 Body mass index [BMI] 19.9 or less, adult; R13.10 Dysphagia, unspecified; G20 Parkinson's disease; G40.909 Epilepsy, unspecified, not intractable, without status epilepticus; G90.9 Disorder of the autonomic nervous system, unspecified; I10 Essential (primary) hypertension; I45.10 Unspecified right bundle-branch block; Z51.5 Encounter for palliative care; Z66 Do not resuscitate; Z71.89 Other specified counseling; Z93.1 Gastrostomy status; Z87.01 Personal history of pneumonia (recurrent); Z83.3 Family history of diabetes mellitus; Z82.49 Family history of ischemic heart disease and other diseases of the circulatory system
CPT/HCPCS: 36415; 36600; 71045; 80048; 80053; 81001; 82803; 83605; 83735; 84100; 84484; 85025; 85027; 85610; 85730; 87040; 92610; 93005; 94640; 94664; 94667; 94668; 97039; C1894; J1650; J1956; J2543; J3370; J3490; J7030